=== PATIENT | male | born 1985 | race Caucasian/White ===

== ENCOUNTER 2023-01-18 08:52 | Emergency (ER) | payer BC ==
--- NOTE | 2023-01-18 09:52 | ED General ---
General Chief Complaint: Cough/Cold/Flu Symptoms Stated Complaint: INFLUENZA B+ | CHEST CONGESTION Nursing Triage Note: PT STATES HAS CONGESTION, COUGH, BURNING OF CHEST. PT STATES TESTED + FOR FLU B ON SUNDAY, PT WAS GIVEN TAMIFLU. Source of Information: Patient Exam Limitations: No Limitations History of Present Illness Date Seen by Provider: Jan 18, 2023 Time Seen by Provider: 09:37 Initial Comments This 37-year-old gentleman presents to the emergency room with complaints of cough, chest congestion, and chest discomfort after being diagnosed with influenza 4 days ago. He was started on Tamiflu but symptoms seem to be persistent. He has tried NyQuil and ibuprofen without much benefit. The cough will not allow him to rest. Cough drops have also not been very effective. He has been ill for about 1 week in total. On exam he is noted to have wheezing. He does not have asthma but has had to use inhalers for bronchitis in the past. Allergies and Home Medications Allergies Uncoded Allergies: PCN (Allergy, Mild, 10/25/09) Patient Home Medication List Home Medication List Reviewed: Yes Azithromycin (Azithromycin) 250 Mg Tablet, 250 MG PO DAILY Prescribed by: CIELO VALERA on 01/18/23 110 Benzonatate (Tessalon Perles) 100 Mg Capsule, 200 MG PO TID PRN for COUGH Prescribed by: CIELO VALERA on 01/18/23 1105 Review of Systems Review of Systems Constitutional: no symptoms reported EENTM: no symptoms reported Respiratory: see HPI Cardiovascular: no symptoms reported Gastrointestinal: no symptoms reported Genitourinary: no symptoms reported Musculoskeletal: no symptoms reported Skin: no symptoms reported Psychiatric/Neurological: No Symptoms Reported Hematologic/Lymphatic: No Symptoms Reported Immunological/Allergic: no symptoms reported Past Sjscxrd-Exzgdm-Uwihqy Hx Patient Social History Tobacco Use?: No Substance use?: No Alcohol Use?: No Pt feels they are or have been: No Immunizations Up To Date Influenza Vaccine Up-to-Date: No; Not Current First/Initial COVID19 Vaccinat: YES Second COVID19 Vaccination [place]: YES Past Medical History Surgeries: No Respiratory: Yes (Episodes of acute bronchitis) Cardiac: No Neurological: No Genitourinary: No Gastrointestinal: No Musculoskeletal: No HEENT: No Cancer: No Psychosocial: No Integumentary: No Physical Exam Vital Signs Vital Signs - First Documented 01/18/23 01/18/23 08:55 09:00 Temp 37.7 Pulse 109 Resp 20 B/P (MAP) 143/102 (116) Pulse Ox 97 O2 Delivery Room Air Capillary Refill : Less Than 3 Seconds Height, Weight, BMI Height: '" Weight: lbs. oz. kg; BMI Method:Stated General Appearance: No Apparent Distress, WD/WN HEENT: PERRL/EOMI, TMs Normal, Normal ENT Inspection, Pharynx Normal Neck: Normal Inspection Respiratory: No Accessory Muscle Use, No Respiratory Distress; No Crackles; Wheezing Cardiovascular: Regular Rate, Rhythm, No Edema, No Murmur Gastrointestinal: Non Tender, Soft Extremity: Normal Inspection, No Pedal Edema Neurologic/Psychiatric: Alert, Oriented x3, No Motor/Sensory Deficits, Normal Mood/Affect Progress/Results/Core Measures Suspected Sepsis SIRS Temperature: Pulse: 109 Respiratory Rate: 20 Blood Pressure 143 /102 Mean: 116 Results/Orders My Orders Orders - CIELO LOPEZ MD Albuterol Hfa Inhaler (Albuterol Hfa Inh (01/18/23 10:00) Benzonatate Capsule (Benzonatate Capsule (01/18/23 10:00) Chest Pa/Lat (2 View) (01/18/23 09:50) Azithromycin Tablet (Azithromycin Tabl (01/18/23 11:00) Medications Given in ED Vital Signs/I&O 01/18/23 01/18/23 01/18/23 08:55 09:00 11:10 Temp 37.7 36.8 Pulse 109 79 Resp 20 17 B/P (MAP) 143/102 (116) 132/75 Pulse Ox 97 98 O2 Delivery Room Air Room Air Capillary Refill : Less Than 3 Seconds Blood Pressure Mean: 116 Progress Note : Progress Note Wheezing was noted on exam. He felt better after using an albuterol inhaler. Tessalon Perles were provided for cough suppression. 2 view chest x-ray was obtained. Radiologist's report was reviewed and suggested left lower lobe pneumonia. He was started on azithromycin with the first dose being administe red in the ER. See discharge instructions for further discussion. Departure Impression Primary Impression: Influenza B Additional Impressions: Left lower lobe pneumonia Qualified Codes: J18.9 - Pneumonia, unspecified organism Acute bronchitis Qualified Codes: J20.8 - Acute bronchitis due to other specified organisms Disposition: HOME, SELF-CARE Condition: Stable Departure-Patient Inst. Decision time for Depature: 11:02 Referrals: NO,LOCAL PHYSICIAN (PCP/Family) Primary Care Physician Patient Instructions: Acute bronchitis, Flu, Adult (DC), Pneumonia, Adult ED Add. Discharge Instructions: Drink plenty of clear liquids to stay well-hydrated. Complete Tamiflu as previously prescribed. Complete all of your antibiotics as prescribed. Start with your next dose tomorrow. You may use your inhaler up to 4 puffs in a 4-hour timeframe as needed for wheezing or shortness of breath. You may use Tessalon Perles (benzonatate) as prescribed for cough suppression. 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 When using combination products purchased [id number], please always check the active ingredients list to be sure you are not doubling up on any of the components. For pain and fever you may take Tylenol (acetaminophen) up to 1000 mg every 6 hours as needed and/or ibuprofen up to 600 mg every 6 hours as needed. Return to the emergency room if you have worsening symptoms despite following these instructions. All discharge instructions reviewed with patient and/or family. Voiced understanding. Scripts Azithromycin (Azithromycin) 250 Mg Tablet 250 MG PO DAILY, #4 TAB 0 Refills Prov: CIELO LOPEZ MD 01/18/23 Benzonatate (TESSALON PERLES) 100 Mg Capsule 200 MG PO TID PRN for COUGH, #20 CAP Prov: CIELO LOPEZ MD 01/18/23 CIELO LOPEZ MD Jan 18, 2023 09:52
[2023-01-18] MEDS ORDERED: RT-ALBUTEROL HFA 8.5 GM INHALER IH ONE (10:00)
[2023-01-18] MEDS ORDERED: BENZONATATE 100 MG CAPSULE PO ONE (10:00)
--- NOTE | 2023-01-18 10:17 | Diagnostic Imaging Report ---
CLINICAL INDICATION: Patient with worsening cough and chest discomfort. Patient tests positive for flu on Sunday. EXAM: Chest x-ray, PA and lateral views. COMPARISON: None. FINDINGS: Lungs/pleura: There is subtle infiltrate involving the left lung base concerning for pneumonia. The remainder of the lungs are clear. There is no pneumothorax. There is no pleural effusion. Mediastinum: Unremarkable. Pulmonary vasculature: Unremarkable. Heart: Unremarkable. Bones/extrathoracic soft tissue: Unremarkable. IMPRESSION: There is a subtle left lung base infiltrate concerning for pneumonia. Dictated by: Dictated on workstation # [id number]
[2023-01-18] MEDS ORDERED: AZITHROMYCIN 250 MG TABLET PO ONE (11:00)
[2023-01-18] MEDS ORDERED: BENZ100C18 PO (11:05)
[2023-01-18] MEDS ORDERED: AZIT250T12 PO (11:05)
[2023-01-18 11:10] VITALS: BP 132/75
== END 2023-01-18 11:10 | disposition home or self-care (01) ==
LOC: EDUNIT# 08:52 → ER 08:55
DX: J10.1 Influenza due to other identified influenza virus with other respiratory manifestations (principal); J18.9 Pneumonia, unspecified organism; J20.9 Acute bronchitis, unspecified; Z88.0 Allergy status to penicillin
CPT/HCPCS: 71046